=== PATIENT | female | born 1950 | race Caucasian/White ===

== ENCOUNTER 2016-12-21 06:31 | Day surgery (SDC) | payer BC ==
[~2016-12-21 06:31] MED LIST: ALL DAY ALLG10 MG PO; AMOXICILLIN/PO500 MG PO; BUSPIRONE7.5 MG OR; BYSTOLIC10 MG PO; CALCIUM + D600 MG PO; CHILD'S ASA81 MG PO; CIPROFLOXACN500 MG PO; CO Q-10200 M1 PO; EQL IBUPROFEN200 MG PO; FLONASE SE27.5 MCG/S; GABAPENTIN300 MG PO; LORTAB 5 OR; LORTAB 5/3255 MG PO; LOTENSIN HCT1 TA3 PO; LOTENSIN10 MG PO; MEGAKRILL; MELATONIN TR10 MG PO; MULTI VIT PO; OB COMPLET2 OR; PAXIL40 MG PO; SUPER B COM2 PO; TRUBIOTICS PO; TYLOPHEN500 MG PO; XANAX0.25 MG PO; XANAX0.5 MG OR; ZOCOR20 MG OR
[2016-12-21 09:15] VITALS: BP 142/78
== END 2016-12-21 09:15 | disposition home or self-care (01) | DRG 951 ==
LOC: ORM 06:31 → ENDO 06:31 → ORM 09:15
PROVIDERS: ATTEND Internal Medicine Gastroenterology
PROC: 0DBN8ZX Excision of Sigmoid Colon, Via Natural or Artificial Opening Endoscopic, Diagnostic (ICD-10-PCS; principal; 2016-12-21)
DX: Z12.11 Encounter for screening for malignant neoplasm of colon (principal); K64.4 Residual hemorrhoidal skin tags; K63.5 Polyp of colon; K57.30 Diverticulosis of large intestine without perforation or abscess without bleeding; K64.8 Other hemorrhoids; I10 Essential (primary) hypertension; Z86.010 Personal history of colon polyps

== ENCOUNTER → 2017-11-21 | Outpatient (REF) | payer MEDICARE, BC | END | disposition home or self-care (01) | LOC: MAMMO 13:37 | PROVIDERS: ATTEND Internal Medicine Geriatric Medicine | DX: Z12.31 Encounter for screening mammogram for malignant neoplasm of breast (principal) ==

== ENCOUNTER 2021-10-04 12:45 | Emergency (ER) | payer MEDICARE, BC ==
[2021-10-04] VITALS (7 sets, daily range): BP systolic 99–177; BP diastolic 58–86
[~2021-10-04] VITALS: Ht 157.5 cm; Wt 69.1 kg
[2021-10-04 13:26] LABS: HEMATOCRIT 47.1 % (37.0-47.0); HEMOGLOBIN 15.6 g/dl (12.0-16.0); IMMATURE GRANULOCYTES 0.5 % (0.0-5.0); MEAN CELL VOLUME 87.1 fL CALC (80.0-100.0); MEAN CORPUSCULAR HGB 28.8 pG CALC (26.0-32.0); MEAN CORPUSCULAR HGB CONC 33.1 g/dL CAL (32.0-36.0); NEUT# 6.17 thou/uL (2.00-7.15); RED BLOOD COUNT 5.41 mill/uL (4.20-5.60); RED CELL DISTRI WIDTH 13.2 % (11.5-15.5)
[2021-10-04 13:43] LABS: ALBUMIN 4.6 g/dL (3.2-5.0); ALKALINE PHOSPHATASE 88 u/l (38-126); ANION GAP 14 (6-22 (CALC)); BILIRUBIN, TOTAL 0.4 mg/dL (0.0-1.4); BUN 17 mg/dL (8-23); BUN/CREATININE RATIO 19 (12-20 (CALC)); CARBON DIOXIDE 24 mmol/l (22-30); CHLORIDE 102 mmol/l (95-108); CREATININE 0.9 mg/dL (0.5-1.0); GFR FOR AFR.AMER. > 60 ML/MIN (>=60 (CALC)); GFR OTHER RACES > 60 ML/MIN (>=60 (CALC)); POTASSIUM 4.4 mmol/l (3.5-5.1); SGOT/AST 24 u/l (9-36); SODIUM 136 mmol/l (137-146); TOTAL PROTEIN 7.8 g/dL (6.3-8.2)
== END 2021-10-04 14:13 | disposition home or self-care (01) ==
LOC: ED 12:45
PROVIDERS: Emergency Medicine
DX: T50.995A Adverse effect of other drugs, medicaments and biological substances, initial encounter (principal); R06.02 Shortness of breath; R53.81 Other malaise; I10 Essential (primary) hypertension

== ENCOUNTER 2023-11-12 13:49 | Emergency (ER) | payer MEDICARE, BC ==
[~2023-11-12] VITALS: Ht 162.6 cm; Wt 86.2 kg
[~2023-11-12 13:49] MED LIST changes: +ACETAMINOPHEN325 MG PO; +CRESTOR5 MG PO; +LISINOPRIL20 M1 PO; +OMEPRAZOLE DR40 MG PO; +SERTRALINE HYDR25 MG PO; +SLOW-MAG PO; +VITAMIN B-121000 MCG PO; +VITAMIN B-650 MG PO; +XANAX0.5 MG PO
[2023-11-12 14:37] VITALS: BP 153/58
[2023-11-12 14:46] VITALS: BP 145/67
[2023-11-12 15:01] VITALS: BP 154/72
[2023-11-12 15:16] VITALS: BP 140/68
[2023-11-12 16:58] VITALS: BP 154/72
== END 2023-11-12 17:37 | disposition home or self-care (01) ==
LOC: ED 13:49
DX: S20.212A Contusion of left front wall of thorax, initial encounter (principal); S51.812A Laceration without foreign body of left forearm, initial encounter; S80.02XA Contusion of left knee, initial encounter; I10 Essential (primary) hypertension; F41.9 Anxiety disorder, unspecified; F32.A Depression, unspecified; F17.200 Nicotine dependence, unspecified, uncomplicated; W01.198A Fall on same level from slipping, tripping and stumbling with subsequent striking against other object, initial encounter; Y92.009 Unspecified place in unspecified non-institutional (private) residence as the place of occurrence of the external cause; Z79.82 Long term (current) use of aspirin

== ENCOUNTER 2024-01-06 09:16 | Emergency (ER) | payer MEDICARE, BC ==
[~2024-01-06] VITALS: Ht 162.6 cm; Wt 77.1 kg
[2024-01-06] VITALS (12 sets, daily range): BP systolic 127–161; BP diastolic 44–89
[2024-01-06] MEDS ORDERED: IPRATROPIUM-Albuterol 0.5MG-2.5MG/3 ML NEB ONE (10:10)
[2024-01-06] MEDS ORDERED: methylPREDNISolone SODIUM SUCC 125 MG/2 ML SDV IV ONE (10:10)
[2024-01-06 10:20] LABS: BASO% 0.7 % (0-3); EOS% 1.5 % (0-8); HEMATOCRIT 42.6 % (37.0-47.0); HEMOGLOBIN 13.6 g/dl (12.0-16.0); IMMATURE GRANULOCYTES 0.4 % (0.0-5.0); LYMPH% 21.1 % (15-41); MEAN CELL VOLUME 88.4 fL CALC (80.0-100.0); MEAN CORPUSCULAR HGB 28.2 pG CALC (26.0-32.0); MEAN CORPUSCULAR HGB CONC 31.9 g/dL CAL (32.0-36.0); NEUT# 5.93 thou/uL (2.00-7.15); NEUT% 69.3 % (42-76); RED BLOOD COUNT 4.82 mill/uL (4.20-5.60); RED CELL DISTRI WIDTH 12.8 % (11.5-15.5)
[2024-01-06 10:42] LABS: CREATININE 0.9 mg/dL (0.5-1.0)
[2024-01-06] MEDS ORDERED: MEDDOSEPAK PO (12:10)
[2024-01-06] MEDS ORDERED: ZITHROMAX250 MG PO (12:10)
[2024-01-06] MEDS ORDERED: VENTOLIN HFA108 MCG INHW/SPAC (12:10)
== END 2024-01-06 12:15 | disposition home or self-care (01) ==
LOC: ED 09:16
PROVIDERS: Emergency Medicine
DX: J40 Bronchitis, not specified as acute or chronic (principal); I10 Essential (primary) hypertension; F41.9 Anxiety disorder, unspecified; F32.A Depression, unspecified; F17.200 Nicotine dependence, unspecified, uncomplicated; Z20.822 Contact with and (suspected) exposure to COVID-19